=== PATIENT | male | born 1960 | race Caucasian/White ===

== ENCOUNTER 2016-06-12 14:20 | Emergency (ER) | payer OTHER ==
[2016-06-12 16:11] LABS: BASOPHIL 0.2 % (0-2); EOSINOPHIL 0.1 % (0-5); HCT 42.4 % (42.0-52.0); HGB 15.3 g/dl (13.2-18.0); MCH 30.4 pg (25.0-31.0); MCHC 36.1 g/dL (32.0-36.0); MCV 84.3 fL (78.0-100.0); MONOCYTE 6.4 % (0-12); MPV 8.8 fL (6.0-9.5); NEUTROPHIL 82.3 % (41-80); PLT 419 K/uL (150-400); RBC 5.03 M/uL (4.70-6.00); RDW 13.3 % (11.5-14.0); WBC 12.7 K/uL (4.0-10.5)
[2016-06-12 16:16] LABS: ALBUMIN 5.3 g/dL (3.5-5.0); BILIRUBIN - TOTAL 0.5 mg/dL (0.1-1.0); CREATININE 0.8 mg/dL (0.7-1.2); POTASSIUM 3.7 mmol/L (3.5-5.1); TOTAL PROTEIN 8.3 g/dL (6.4-8.3)
== END 2016-06-12 20:15 | disposition home or self-care (01) ==
LOC: FER 14:20
PROVIDERS: Nurse Practitioner Family
DX: K57.32 Diverticulitis of large intestine without perforation or abscess without bleeding (principal); R51 Headache; G89.29 Other chronic pain; K21.9 Gastro-esophageal reflux disease without esophagitis; Z87.39 Personal history of other diseases of the musculoskeletal system and connective tissue; Z87.891 Personal history of nicotine dependence; Z79.899 Other long term (current) drug therapy
CPT/HCPCS: 36415; 80053; 85025; 87804; 87899; 93005; J1885; J2405; J2765; Q9967